=== PATIENT | male | born 1955 | race Caucasian/White ===

== ENCOUNTER 2016-10-01 16:47 | Emergency (ER) | payer BC ==
[2016-10-01 18:38] LABS: HEMOGLOBIN 13.9 gm/dl (14.0-17.5); RED BLOOD COUNT 4.73 M/UL (4.20-5.50); WHITE BLOOD COUNT 6.5 K/UL (4.5-11.0)
[2016-10-01 19:03] LABS: BUN/CREATININE RATIO 17 (0-10)
== END 2016-10-01 23:00 | disposition home or self-care (01) ==
LOC: ER1 16:47
PROVIDERS: Emergency Medicine
DX: R53.1 Weakness (principal); R53.83 Other fatigue; T14.8 Other injury of unspecified body region; R06.02 Shortness of breath; I48.91 Unspecified atrial fibrillation; Z86.73 Personal history of transient ischemic attack (TIA), and cerebral infarction without residual deficits; W57.XXXA Bitten or stung by nonvenomous insect and other nonvenomous arthropods, initial encounter
CPT/HCPCS: 36415; 71010; 80053; 81001; 82550; 82553; 83735; 83874; 83880; 84443; 84484; 85025; 85379; 85610; 85730; 86618; 87040; 93005; 96360; 99284; J7040